=== PATIENT | male | born 1995 | race African-American/Black ===

== ENCOUNTER 2023-05-22 13:17 | Outpatient (CLI) | payer OTHER ==
[2023-05-23 18:47] VITALS: BP 132/80
--- NOTE | 2023-05-23 18:47 | SLEEP CARE CONSULTATION ---
Information from patient questionnaire entered by Marissa Gonzalez. I have reviewed and concur with the information entered by Marissa Gonzalez. This document represents the service I personally performed and the decisions made by me, Rohith Higuera MD, [facility]. History of Present Illness Service Date and Time: 05/22/2023 1317 Reason for Visit: New patient Chief Complaint: reports: Frequent awakenings at night, Other (SLEEP WALKING SLEEP PARALEZES) Date of Onset: 3-4YRS Usual bedtime: 10-12PM Time it takes to fall asleep: 10MIN-HRS Snores at night: Yes Observed to quit breathing while asleep: No Sleeps alone due to snoring: No Number of times waking at night: 2 Reasons for waking at night: reports: Bathroom, Other (SLEEP PARALESES) Toss, Turn, or Twitch while sleeping: Yes Recalls having dreams: Yes Usually gets out of bed at: 430-5AM Feels refreshed in the morning: No Morning headache: No Sleepy or fatigued during the day: Yes Ever fallen asleep while driving: No Takes day naps: No Dreams during day naps: Yes Prior sleep studies: No Additional HPI information: I had the pleasure of seeing Mr. Castro today regarding the possibility of him having a sleep disorder. As you know, he is a 27-year-old gentleman who complains of sleep walking and sleep paralysis that started about 4 years ago when his child was born. He says that sleep walking occurs about twice a month. He does not remember most of them except for when his tells him in the morning. He has walked outside the bedroom but no injury or accident so far. He did have a gun in his hand one time. Now he has his gun locked up. He has sleep paralysis about twice a week. It does not scare him. He drinks alcohol on the weekends and it seems to prevent sleep walking and sleep paralysis. The patient tells me that he normally goes to bed around 10 pm - midnight, and it takes him approximately 10 - 60 minutes to fall asleep. He has been told that he snores lightly at night. He has never been observed to stop breathing in his sleep. His can sleep in the same bed. He can recall waking up on average 2 times during the night. Most of the time he wakes up because of having to use the bathroom and sleep paralysis. He has awakened occasionally because of his own snoring, choking, and having to gasp for air. There is a lot of tossing and turning in his sleep. Generally, there is no recollection of dreams. In the morning he usually gets up out of the bed around 4:340 - 5 a.m. not feeling refreshed nor rested. He usually does not have a morning headache. During the day he complains of feeling sleepy and fatigued. His score on [place] Sleepiness Scale is 8 out of 24. He never has fallen asleep while driving nor has had any accident due to sleepiness. He usually does not take naps during the day. He reports having impaired concentration during the day. 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 Patient is and lives in . Have you smoked in the past 12 months: No Years of smokin Quit date: 2018 Alcohol use: Yes Alcohol amount and frequency: 2-3 DRINKS WEEKENDS Caffeine use: No Family History Family history of sleep disordered breathing: No Allergies and Home Medications Known drug allergies: No Drug allergies reviewed: Yes Home medication list reviewed: Yes Review of Systems Weight gain over past 5 years: 25 Weight loss over past 5 years: 18 Cardiovascular: denies: high blood pressure, palpitations, chest pain, irregular heart rate or pulse, leg or foot swelling, have to sleep sitting up, other Respiratory: denies: shortness of breath, wheeze, sputum production, chronic cough, other Gastrointestinal: denies: heartburn, difficulty swallowing, nausea, vomitting, diarrhea, abdominal pain, other Urinary: denies: incontinence, frequency, urgency, impotence, other Neurological: denies: headaches, seizure, head trauma, disorientation, speech dysfunction, gait or balance problems, fainting or unconsciousness, other Psychiatric: denies: Attention Deficit Hyperactivity, anxiety, depression, mood disorder, claustrophobia, other Ear/Nose/Throat: denies: nasal congestion, sinus problems, nose bleeds, dry mouth/throat, hoarseness, injury to nose, tonsillectomy, wisdom teeth removed, other Endocrine: denies: thyroid disease, history of goiter, sluggishness, too hot or cold, excessive thirst, increased appetite, increased urination, unexplained weakness, other Musculoskeletal: denies: joint pain, neck pain, back pain, joint swelling, muscle pain or cramping, mobility problems, other Immunologic: denies: sneezing, rash, itching, allergies to food or environment, other Physical Exam Vital signs obtained and entered by: MARISSA Montiel MA Blood Pressure: 132/80 (LEFT ARM) Cuff size: long Heart Rate: 82 O2 Saturation: 98 Height: 5 ft 9 in Weight: 231 lb 9.6 oz Body Mass Index: 34.2 BMI Classification: Obese Neck circumference: 16.75 Mood/affect: normal HEENT: No craniofacial malformation Nostrils: patent to airflow Turbinates: normal Septum: midline Mouth and throat: narrow oropharynx Soft palate: long Hard palate: normal Uvula: normal Uvula visualization: 50% Mallampati Class II Tongue: normal in size Tonsils: small Chin and jaw: Micrognathia Neck: normal w/o lymphadenopathy or thyromegaly Heart: regular rate and rhythm Lungs: clear bilaterally Extremities: no edema or clubbing Neurologic: intact Impression and Plan IMPRESSION: 1. Sleep walking, a non-REM parasomnia. So far, there has not been any injury of accident. Sleep walking might be due to sleep deprivation. The primary treatment is to safe proof the sleeping environment and limit the activity to bedroom. I recommend he put an alarm on the bedroom door. Other sleep disrupting conditions should be ruled out. The patient has several risk factors for obstructive sleep apnea-hypopneasnore, narrow upper airway, thick neck, and obesity. I recommend proceeding to an in-laboratory polysomnography for further evaluation. I informed the patient of what the sleep studies involve and after some discussion, he agreed to proceed. Plan: 1. Schedule polysomnography and return in 1 to 2 weeks after the study to discuss result and initiate therapy. 2. Put an alarm on the bedroom door. Counseling Topics: Weight control Follow up with Sleep Care in: 1-2 months Visit Type: In Office Time Spent with Patient (minutes): 15 Provider Statement: I spent 100% of the Face to Face Visit with the patient with greater than 50% spent counseling the patient and coordination of care.
== END 2023-05-22 13:18 | disposition home or self-care (01) ==
LOC: SC 13:17
PROVIDERS: ATTEND Internal Medicine Pulmonary Disease
DX: R06.83 Snoring (principal); F51.3 Sleepwalking [somnambulism]; G47.8 Other sleep disorders; R06.81 Apnea, not elsewhere classified; G47.10 Hypersomnia, unspecified; E66.9 Obesity, unspecified; Z68.34 Body mass index [BMI] 34.0-34.9, adult; Z87.891 Personal history of nicotine dependence
CPT/HCPCS: 99203; 99212

== ENCOUNTER 2023-06-12 19:23 | Outpatient (CLI) | payer OTHER | END 2023-06-12 19:24 | disposition home or self-care (01) | LOC: SC 19:23 | PROVIDERS: ATTEND Internal Medicine Pulmonary Disease | DX: G47.59 Other parasomnia (principal); G47.61 Periodic limb movement disorder | CPT/HCPCS: 95810 ==

== ENCOUNTER 2023-06-21 21:52 | Emergency (ER) | payer OTHER ==
[2023-06-21 22:00] VITALS: BP 148/93; O2SAT 98
--- NOTE | 2023-06-21 22:15 | ED Physician Documentation ---
PD HPI HEENT - Stated complaint Stated Complaint: FEVER/SORE THROAT - Chief complaint Chief Complaint: Heent - History obtained from History obtained from: Patient - Additional information Additional information: 2 days of sore throat with more of a sensation of swelling today and pain with swallowing which radiates to the left ear. He had a fever earlier today. No sick contacts. No runny nose or cough. PD PAST MEDICAL HISTORY - Past Medical History Past Medical History: No - Past Surgical History Past Surgical History: Yes Ortho: Other - Present Medications Home Medications: Ambulatory Orders Medication Instructions Recorded Confirmed No Known Home Medications 05/22/23 06/21/23 - Allergies Allergies/Adverse Reactions: Allergies Allergy/AdvReac Type Severity Reaction Status Date / Time No Known Drug Allergies Allergy Verified 06/21/23 22:00 - Social History Does the pt smoke?: No Smoking Status: Never smoker Does the pt drink ETOH?: Yes ETOH Use: Liquor Does the pt have substance abuse?: No - Immunizations Immunizations are current?: Yes - POLST Patient has POLST: No PD ED PE NORMAL - Vitals Vital signs reviewed: Yes - General General: Alert and oriented X 3, No acute distress - HEENT HEENT: PERRL, EOMI, Ears normal, Other (Red tonsillar pillars without exudates or obvious swelling.) - Neck Neck: No adenopathy - Abdomen Abdomen: Non tender - Derm Derm: No rash - Neuro Neuro: Alert and oriented X 3, Normal speech Results - Vitals Vitals: Vital Signs - 24 hr 06/21/23 21:57 Temperature 37.0 C Heart Rate 72 Respiratory 16 Rate Blood Pressure 148/93 H O2 Saturation 98 Oxygen O2 Source Room air - Labs Labs: Laboratory Tests 06/21/23 22:03 Group A Strep Rapid Negative Departure - Departure Disposition: Home, Self Care Clinical Impression: Viral pharyngitis Condition: Good Record reviewed to determine appropriate education?: Yes Instructions: ED Pharyngitis Viral Report Pending Comments: Your rapid strep test is negative. We will perform a culture. If a bacterial isolate is identified, we will call you and prescribe some antibiotics. You did receive a dose of a long-acting steroid known as dexamethasone which should help with the swelling. Return for new or worsening symptoms. Follow-up with your PCP on Monday if not better. Forms: PCP List
[2023-06-21 22:21] LABS: RAPID STREP SCREEN Negative (Negative)
[2023-06-21] MEDS ORDERED: DEXAMETHASONE 10 MG/ML VIAL PO STA (22:23)
[2023-06-21] MEDS ORDERED: CHERRY SYRUP 10 ML UDC PO ONE (22:23)
== END 2023-06-21 22:40 | disposition home or self-care (01) ==
LOC: ED 21:52
DX: J02.8 Acute pharyngitis due to other specified organisms (principal)
CPT/HCPCS: 87070; 87430; 99283; A9270

== ENCOUNTER 2023-08-07 11:26 | Outpatient (CLI) | payer OTHER ==
--- NOTE | 2023-08-07 21:38 | SLEEP CARE CONSULTATION ---
Information from patient questionnaire entered by Marissa Gonzalez. I have reviewed and concur with the information entered by Marissa Gonzalez. This document represents the service I personally performed and the decisions made by me, Rohith Higuera MD, [facility]. History of Present Illness Service Date and Time: 08/07/2023 1126 Initial [place] Sleepiness Scale score: 9 (05/22/23) Current [place] Sleepiness Scale score: 11 (08/07/23) Additional HPI information: Mr. Castro returned for follow up of the sleep study he had on 06/12/2023. The polysomnography showed mild periodic leg movement of sleep and non-REM parasomnia where the patient sat up in bed and moving his arms during slow wave sleep (N3). There was no significant sleep-disordered breathing. Sleep Study - Results Type of Sleep Study: Polysomnography (LAST SEEN 06/12/23) Prior sleep studies: No Allergies and Home Medications Drug allergies reviewed: Yes Home medication list reviewed: Yes Allergy and home medication list: Allergies No Known Drug Allergies Allergy (Verified 08/04/23 11:09) Review of Systems Review of systems same as previous: Yes Physical Exam Vital signs obtained and entered by: MARISSA Montiel MA Blood Pressure: 132/80 (LEFT ARM) Cuff size: regular Heart Rate: 79 O2 Saturation: 98 Height: 5 ft 9 in Weight: 217 lb 12.8 oz Body Mass Index: 32.1 BMI Classification: Obese Impression and Plan IMPRESSION: 1. Non-REM parasomnia confirmed by the in-laboratory polysomnography. So far, it has not caused any injury to the patient or other people near him. He did have a gun in his hand one time. The primary treatment is to keep the bedroom environment safe. PLAN: 1. Sleep environment safety was discussed. 2. Avoid sleeping in environments where sleep walking would be dangerous, e.g. camping or on a boat. 3. Avoid sleep deprivation. 4. Clonazepam can be used if sleep walking results in an injury. 5. Return for a follow up on as needed basis. Follow up with Sleep Care in: as needed Visit Type: In Office Time Spent with Patient (minutes): 15 Provider Statement: I spent 100% of the Face to Face Visit with the patient with greater than 50% spent counseling the patient and coordination of care.
[2023-08-07 21:39] VITALS: BP 132/80; O2SAT 98
== END 2023-08-07 11:27 | disposition home or self-care (01) ==
LOC: SC 11:26
PROVIDERS: ATTEND Internal Medicine Pulmonary Disease
DX: G47.50 Parasomnia, unspecified (principal)
CPT/HCPCS: 99212

== ENCOUNTER 2024-04-30 08:30 | Outpatient (CLI) | payer OTHER ==
--- NOTE | 2024-04-30 12:58 | XRAY Report ---
PROCEDURE: Shoulder 2+V RT INDICATIONS: SUBSCAPULARIS TENDINITIS TECHNIQUE: 3 views of the shoulder were acquired. COMPARISON: None. FINDINGS: Bones: No fractures or dislocations. No suspicious bony lesions. Visualized ribs appear intact. Soft tissues: No suspicious soft tissue calcifications. The visualized lungs are within normal limi ts. IMPRESSION: No acute bony abnormality. If pain persists with conservative management, consider repeat radiographs in 10-14 days or MRI. Reviewed by: Compa Spaulding MD on 04/30/2024 12:57 PM PDT Approved by: Compa Spaulding MD on 04/30/2024 12:57 PM PDT Station ID: [id number]
== END 2024-04-30 08:45 | disposition home or self-care (01) ==
LOC: DI.N 08:30
PROVIDERS: ATTEND Physician Assistant Medical
DX: M75.80 Other shoulder lesions, unspecified shoulder (principal)

== ENCOUNTER 2024-06-07 13:14 | Outpatient (CLI) | payer OTHER ==
--- NOTE | 2024-06-07 13:41 | Sleep Patient Instructions ---
Sleep Center Visit Summary - Patient Visit Information Reason for Visit: 10-month follow-up - Patient Instructions Additional Instructions: You will be completing a sleep study, either an in-lab polysomnography (PSG) or home sleep study (HST). You will follow-up in the sleep care office after the sleep study is completed to hear the results and talk about therapy, if needed. You will be called by our office staff to schedule this appointment, but you may contact us with any questions. - Clinic Information Contact: [facility] [address] [place] [id number] [email or web address] T: [phone]
--- NOTE | 2024-06-07 13:48 | SLEEP CARE CONSULTATION ---
Information from patient questionnaire entered by Marissa Gonzalez. I have reviewed and concur with the information entered by Marissa Gonzalez. This document represents the service I personally performed and the decisions made by me, Lissette Anderson ARNP. History of Present Illness Service Date and Time: 06/07/2024 1314 Reason for follow up: other (10MONTH F/U SYMPTOMS WORSENING) Prior sleep studies: No Type of Sleep Study: Polysomnography (LAST SEEN 06/12/23) HPI additional information: SHERRY PHAN returned today with concerns of worsening symptoms and the possibility of him having a sleep disorder. He was last seen 10 months ago and noted to have non-REM parasomnias in his sleep study but no significant sleep disordered breathing. He says for the last month he has been having some pauses in breathing according to his . He has woke up feeling like he was "suffocating" and gasping for air. He says his mother is using a CPAP for sleep apnea and his father has milder sleep apnea but is not treated. His current complaints are snoring, observed pauses in breathing and unrefreshed sleep. He has gained about 25 pounds since his last appointment. The patient tells me that he normally goes to bed around 11-11:30 pm, and it takes him approximately 20 minutes to fall asleep. He has been told that he snores loudly and irregularly at night. He has been observed to stop breathing in his sleep. His bed partner can still sleep in the same bed. He can recall waking up on the average of 2 times during the night. Most of the time he wakes up because of sleepwalking and wakes him up or not being able to breath. He has occasionally awakened for having to gasp for air. There is a lot of tossing and turning in his sleep. Generally he can recall having dreams. He usually wakes up at 0630 and does not feel refreshed all the time. He usually does not have a morning headache. During the day he does not feel sleepy and fatigued until after lunch. He has never fallen asleep while driving nor has any accident due to sleepiness. He usually does not take naps during the day. There is somniloquy (sleep talking) and somnambulism (sleep walking) about 2-3 times a week. He has left room before but not frequently. He has never experienced sleep paralysis and symptoms of restless leg syndrome. He reports having impaired concentration during the day. Sleep Study - Results Type of Sleep Study: Polysomnography (LAST SEEN 06/12/23) Prior sleep studies: No Subjective Initial [place] Sleepiness Scale score: 9 (05/22/23) Current [place] Sleepiness Scale score: 7 (06/07/24) Allergies and Home Medications Known drug allergies: No Drug allergies reviewed: Yes Home medication list reviewed: Yes (no changes) Allergy and home medication list: Allergies No Known Drug Allergies Allergy (Verified 06/07/24 13:14) Review of Systems Review of systems same as previous: No (NO CHANGE) Physical Exam Vital signs obtained and entered by: MARISSA Montiel MA Blood Pressure: 129/84 (RIGHT ARM) Cuff size: long Heart Rate: 69 O2 Saturation: 96 Height: 5 ft 9 in Weight: 242 lb 3.2 oz Weight change since last visit: 25 lb gain Body Mass Index: 35.7 BMI Classification: Obese Impression and Plan 1. Suspected Obstructive Sleep Apnea-Hypopnea Syndrome, as suggested by a history of loud and irregular snoring, observed cessation of breath while asleep, gasping or choking in sleep and unrefreshed sleep. He has significant weight gain and his symptoms are worsening. I recommend proceeding to polysomnography to confirm the diagnosis and to assess severity. I obtained agreement to proceed. The pathophysiology of obstructive sleep apnea-hypopnea syndrome was discussed with the patient and health risks of cardiovascular and cerebrovascular disease if not treated. 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 Patient agreed to plan. He has a history of hypertension and depression. 2. Obesity, unspecified. Currently patients BMI is 35.7. Obesity increases the risk of apnea, CPAP pressure requirements and overall health risks especially cardiovascular and diabetes. Thus patient is advised to lose weight. * Schedule polysomnography * Avoid long distance driving or driving when feeling sleepy. * Avoid alcohol, sedative and muscle relaxant around bedtime. * Attempt to lose weight. * Review instructions provided by trained office staff on how to prepare for the sleep study. * Return for follow-up after sleep study completed. Counseling Topics: Weight loss health impact Plan: PSG and follow up Visit Type: In Office Time Spent with Patient (minutes): 23 Provider Statement: I spent 100% of the Face to Face Visit with the patient with greater than 50% spent counseling the patient and coordination of care.
[2024-06-07 14:09] VITALS: BP 129/84; O2SAT 96
== END 2024-06-07 13:15 | disposition home or self-care (01) ==
LOC: SC 13:14
PROVIDERS: ATTEND Nurse Practitioner Family
DX: R06.81 Apnea, not elsewhere classified (principal); R06.83 Snoring; F51.3 Sleepwalking [somnambulism]; G47.8 Other sleep disorders; E66.9 Obesity, unspecified; Z68.35 Body mass index [BMI] 35.0-35.9, adult; I10 Essential (primary) hypertension; F32.A Depression, unspecified
CPT/HCPCS: 99212; 99213

== ENCOUNTER 2024-07-02 21:43 | Outpatient (CLI) | payer OTHER | END 2024-07-02 21:44 | disposition home or self-care (01) | LOC: SC 21:43 | PROVIDERS: ATTEND Nurse Practitioner Family | DX: G47.33 Obstructive sleep apnea (adult) (pediatric) (principal); E66.9 Obesity, unspecified; Z68.37 Body mass index [BMI] 37.0-37.9, adult; I10 Essential (primary) hypertension; F32.A Depression, unspecified | CPT/HCPCS: 95810 ==

== ENCOUNTER 2024-07-16 13:09 | Outpatient (CLI) | payer OTHER ==
--- NOTE | 2024-07-16 14:47 | SLEEP CARE CONSULTATION ---
Information from patient questionnaire entered by Lawanda Gonzalez. I have reviewed and concur with the information entered by Lawanda Gonzalez. This document represents the service I personally performed and the decisions made by , Lissette Anderson ARNP. History of Present Illness Service Date and Time: 07/16/2024 1309 Initial [place] Sleepiness Scale score: 9 (05/22/23) Current [place] Sleepiness Scale score: 9 Additional HPI information: SHERRY PHAN returns for follow up and results of the recently performed polysomnography. The sleep study done on 07/02/24 showed mild obstructive sleep apnea with an average AHI of 11.4 and lele oxygen saturation of 90%. I explained the pathophysiology behind obstructive sleep apnea. We then spent quite a bit of time discussing different treatment options. For mild obstructive sleep apnea, surgery and oral appliance are alternatives to nasal CPAP therapy but in moderate or severe cases, nasal CPAP is the most effective and reliable treatment. Because apnea is primarily in supine position, then positional management therapy could be effective. Methods discussed such as positioning with pillows, using a T-shirt with tennis balls in the back or commercial products that have a pillow format on back to prevent supine sleep. I reviewed the impact of weight changes on sleep apnea and strongly recommended losing weight. After some discussion, the patient opted to try positional therapy. Patient counseled not drink alcohol less than 4 hours before bedtime as it can increase snoring and apnea. Patient was cautioned about risks of drowsy driving until sleepiness symptoms resolve. Patient denies drowsy driving. Sleep Study - Results Type of Sleep Study: Polysomnography (LAST SEEN 06/12/23 COMPLETED 07/02/24) Prior sleep studies: No Polysomnography/Home Sleep Study results: IMPRESSION: The quality of the study is good. The patient had normal sleep efficiency. The sleep architecture was abnormal for sleep fragmentation and reduced amount of time spent in slow wave sleep (N3). Respiratory monitoring showed mild obstructive sleep apnea-hypopnea (AHI = 11.4) associated with frequent arousals, oxyhemoglobin desaturation and mild hypoxia (lele oxygen saturation of 86%). The respiratory events occurred almost exclusively during supine sleep (supine AHI = 48.9; non-supine = 4.02). Snore was loud in intensity. There was no significant periodic leg movement of sleep. Cardiac rhythm was normal sinus rhythm without significant arrhythmia. No abnormal b ehavior (parasomnia) observed during the night. Allergies and Home Medications Known drug allergies: No Drug allergies reviewed: Yes Home medication list reviewed: Yes (no changes) Allergy and home medication list: Allergies No Known Drug Allergies Allergy (Verified 07/16/24 13:15) Review of Systems Review of systems same as previous: Yes (NO CHANGE) Physical Exam Vital signs obtained and entered by: LAWANDA Montile MA Blood Pressure: 138/86 Heart Rate: 84 O2 Saturation: 98 Height: 5 ft 9 in Weight: 246 lb 6.4 oz Body Mass Index: 36.3 BMI Classification: Obese Impression and Plan 1. Obstructive Sleep Apnea-Hypopnea Syndrome, mild, with lowest oxygen saturation of 86%. He had severe obstructions when sleeping supine but was in normal range, 4.0 on his sides. Obviously this is the cause of the patients symptoms of unrefreshed sleep and excessive daytime sleepiness. Positive pressure therapy could benefit hypertension and depression. Since patients apnea is primarily in supine position, patient advised that he could try positional therapy and agreed with plan. He is also advised to lose weight as this will reduce snoring and apnea. I would usually follow up in one month to check effectiveness but he is moving [place] of [place] before the end of the month. He was advised to see a sleep provider in his new area when he is able to see how he is doing with positional therapy. He voiced understanding. 2. Obesity, unspecified. Currently patients BMI is 36.3. Obesity increases the risk of apnea, CPAP pressure requirements and overall health risks especially cardiovascular and diabetes. Thus patient is advised to lose weight. * Positional therapy * Attempt to lose weight. * Avoid alcohol consumption near bedtime. * Avoid supine sleep. * The patient is again cautioned about driving until sleepiness completely resolves. * Return as needed. Counseling Topics: Sleeping position, Weight loss health impact Follow up with Sleep Care in: other (as soon as able after move to new area) Visit Type: In Office Time Spent with Patient (minutes): 20 Provider Statement: I spent 100% of the Face to Face Visit with the patient with greater than 50% spent counseling the patient and coordination of care.
[2024-07-16 14:51] VITALS: BP 138/86; O2SAT 98
== END 2024-07-16 13:10 | disposition home or self-care (01) ==
LOC: SC 13:09
PROVIDERS: ATTEND Nurse Practitioner Family
DX: G47.33 Obstructive sleep apnea (adult) (pediatric) (principal); E66.9 Obesity, unspecified; Z68.36 Body mass index [BMI] 36.0-36.9, adult
CPT/HCPCS: 99212; 99213